=== PATIENT | male | born 1960 | race Caucasian/White ===

== ENCOUNTER 2020-01-31 11:37 | Outpatient (CLI) | payer BC, SELFPAY ==
--- NOTE | ~2020-01-31 | XR_ITS ---
XR chest 2V DATE: 01/31/2020 11:57 INDICATION: Fever, cough TECHNIQUE: 2 views COMPARISON: 05/21/2018 PA and lateral chest FINDINGS: Normal heart size. No hilar or mediastinal enlargement. No pulmonary infiltrate or consolid ation, pleural effusion or pulmonary vascular congestion or pneumothorax. Thoracic scoliosis. IMPRESSION: No active cardiopulmonary disease Reviewed, dictated and finalized at location A.
== END 2020-01-31 11:38 | disposition home or self-care (01) ==
LOC: ANHIMG 11:43
PROVIDERS: PCP Nurse Practitioner Family; Visit Provider Nurse Practitioner Family
DX: Z72.0 Tobacco use (principal)
CPT/HCPCS: 71046

== ENCOUNTER 2021-03-22 13:44 | Outpatient (CLI) | payer BC, SELFPAY ==
--- NOTE | ~2021-03-22 | XR_ITS ---
EXAMINATION: XR sacrum coccyx min 2V EXAM DATE: 03/22/2021 14:18 INDICATION: Sacral back pain, chronic lbp, pain in RT foot TECHNIQUE: Sacral frontal, pelvic inlet, sacral lateral projections. There is no prior study for co mparison. FINDINGS: Sacroiliac joints are symmetric and unremarkable. Sacral arcuate lines are intact. There a re no acute fractures identified. Possible L5 partial or unilateral spondylolysis. Mild symmetric parish ateral hip osteoarthritis. IMPRESSION: 1. Unremarkable sacrum. 2. Possible L5 partial or unilateral spondylolysis. Reviewed, dictated and finalized at location B.
--- NOTE | ~2021-03-22 | XR_ITS ---
EXAMINATION: XR foot RT min 3V EXAM DATE: 03/22/2021 14:18 INDICATION: Pain in RT foot . TECHNIQUE: Right foot dorsoplantar, lateral and oblique projections obtained and reviewed. There is no prior study for comparison. FINDINGS: Right metatarsal bones unremarkable. There is moderate right 1st metatarsophalangeal joint primary osteoarthritis. There are no acute fractures or dislocations identified. There is no subcut aneous gas. The soft tissue is unremarkable. There are no radiopaque foreign bodies. IMPRESSION: Moderate right 1st MTP osteoarthritis. Reviewed, dictated and finalized at location B.
--- NOTE | ~2021-03-22 | XR_ITS ---
EXAMINATION: XR lumbar spine 2-3V EXAM DATE: 03/22/2021 14:18 INDICATION: sacral back pain, chronic lbp, pain in RT foot (BIG TOE). TECHNIQUE: Lumber spine frontal, lateral, lateral L5-S1 projections for interpretation. There is no prior study for comparison. FINDINGS: Possible partial L5 spondylolysis. There is 3 mm anterolisthesis L5 on S1. Mild diffuse beverly mbar disc disease. Mild to moderate lumbar facet arthropathy. Mild aortic arterial sclerosis. Sacrum, sacroiliac joints, sacral arcuate lines are intact. Paraspinal soft tissue is unremarkable. IMPRESSION: 1. Possible partial L5 spondylolysis. 2. Mild to moderate lumbar spondylosis. Reviewed, dictated and finalized at location B.
== END 2021-03-22 13:45 | disposition home or self-care (01) ==
LOC: ANHIMG 13:48
PROVIDERS: PCP Nurse Practitioner Family; Visit Provider Family Medicine
DX: M54.5 Low back pain (principal); M79.671 Pain in right foot; M19.071 Primary osteoarthritis, right ankle and foot; M47.816 Spondylosis without myelopathy or radiculopathy, lumbar region
CPT/HCPCS: 72100; 72220; 73630

== ENCOUNTER 2023-05-21 16:26 | Outpatient (CLI) | payer BC, SELFPAY ==
--- NOTE | ~2023-05-21 | XR_ITS ---
XR knee RT 3V 05/21/2023 16:44 Indication: Right knee pain Procedure: 3 views right knee Comparison: 06/23/2016 Findings: There is mild osteoarthritis. No fracture, subluxation or dislocation. No joint effusion. Impression: 1: Mild osteoarthritis the right knee. Reviewed, dictated and finalized at location A. Impression: 1: Mild osteoarthritis the right knee.
== END 2023-05-21 16:27 | disposition home or self-care (01) ==
LOC: ANHIMG 16:30
PROVIDERS: PCP Nurse Practitioner Family; Visit Provider Family Medicine
DX: M25.561 Pain in right knee (principal); M17.11 Unilateral primary osteoarthritis, right knee
CPT/HCPCS: 73562

== ENCOUNTER 2023-06-23 07:49 | Outpatient (CLI) | payer BC, SELFPAY ==
--- NOTE | ~2023-06-23 | MR_ITS ---
MRI of the right knee Clinical history: Pain Technique: Coronal proton density and proton density-weighted images, sagittal proton-density and T2 fat-sat images, and axial proton-density fat-saturated images were acquired. Findings: Anterior and posterior cruciate ligaments are intact. Medial collateral ligament and the la teral collateral ligament complex are intact. Popliteus tendon is intact. There is a radial tear at the posterior root of the medial meniscus. No lateral meniscal tear evident . There is moderate to high-grade chondral lesion extensive involving the medial femoral condyle, and m edial tibial plateau at the joint line. There is mild chondral thinning in the lateral compartment. T here is high-grade chondromalacia along the lateral patellar facet with subchondral reactive marrow e gemini. There is focal high-grade chondral malacia at the inferior femoral trochlea. Minimal tricompart mental osteophytes are present. Extensor mechanism is intact. Small to moderate joint effusion present. No Stewart's cyst. Impression: Radial tear at the posterior root of the medial meniscus. Overall mild tricompartmental degenerative change, as detailed above, with areas of high-grade chondr omalacia at the lateral patellar facet and medial femoral condyle. Small to moderate joint effusion. Reviewed, dictated and finalized at location M. [employer] Impression: Radial tear at the posterior root of the medial meniscus. Overall mild tricompartmental degenerative change, as detailed above, with area s of high-grade chondromalacia at the lateral patellar facet and medial femoral condyle. Small to moderate joint effusion.
== END 2023-06-23 07:50 | disposition home or self-care (01) ==
PROVIDERS: PCP Nurse Practitioner Family; Visit Provider Physician Assistant Surgical
DX: S83.241A Other tear of medial meniscus, current injury, right knee, initial encounter (principal); M17.11 Unilateral primary osteoarthritis, right knee; M94.261 Chondromalacia, right knee; M25.461 Effusion, right knee
CPT/HCPCS: 73721